=== PATIENT | male | born 1990 | race Caucasian/White ===

== ENCOUNTER 2020-04-22 15:08 | Outpatient (CLI) | payer OTHER, SELFPAY ==
[2020-04-22 15:55] LABS: Add Urine Microscopic? YES; Appearance Urine Clear (Clear); Bilirubin Urine Negative (Negative); Blood Urine Negative (Negative); Color Urine Yellow (Yellow); Glucose Urine UA Negative (Negative); Ketones Urine Trace mg/dL (Negative); Leukocyte Esterase Ur Negative LEU/UL (NEGATIVE); Mucus Urine Rare /lpf; Nitrate Urine Negative (Negative); Protein Urine Negative (Negative); RBC Urine 0-2 /hpf (0-2); Specific Grav Ur 1.018 (1.001-1.035); Urobilinogen Urine Negative mg/dL (<2.0); WBC Urine 0-3 /hpf (0-3)
== END 2020-04-22 15:09 | disposition home or self-care (01) ==
LOC: ANHLAB 15:09
PROVIDERS: PCP Internal Medicine; Visit Provider Physician Assistant
DX: R30.0 Dysuria (principal)
CPT/HCPCS: 81001; 87086

== ENCOUNTER 2021-06-09 05:23 | Observation (INO) | payer OTHER, SELFPAY ==
[2021-06-09] VITALS (30 sets, daily range): BP systolic 102–187; BP diastolic 49–96; PULSE 85–250; RESP 0–33; TEMP 36.5–36.9; O2SAT 98–100; BMI 31.1
--- NOTE | 2021-06-09 | ECHO_ITS ---
Patient Info Name: Julian Nuñez Age: 31 years : 1990 Gender: Male Ht: 72 in Wt: 229 lbs BSA: 2.32 m2 HR: 111 bpm BP: 131 / 70 mmHg Heart Rhythm: Sinus Rhythm Technical Quality: Good Exam Date: 06/09/2021 2:06 PM Exam Location: [facility] Pulmonary Exam Room: [facility] Patient Status: Inpatient Admit Date: 06/09/2021 Staff Ordering Physician: Manny Soto MD [place] Machine Operator: Danette Bates RDCS Attending Provider: Tree Roberts MD Referring Physician: Charles CALDERON; Exam Type: CA echo doppler color flow Study Info Indications - svt Complete two-dimensional, color flow and Doppler transthoracic echocardiogram is performed. Summary 1. Complete two-dimensional, color flow and Doppler transthoracic echocardiogram is performed. 2. Left ventricular chamber dimension is normal. 3. Left ventricular systolic function is normal, estimated at 65-70%. 4. There is no increased left ventricular wall thickness. 5. The left ventricular diastolic function is normal. 6. There is mild tricuspid valve regurgitation. 7. Elevated velocity in the descending aorta of 1.73 m/sec with a gradient of [address] angiogram to rule out coarctation. Left Ventricle Left ventricular chamber dimension is normal. Left ventricular systolic function is normal, estimated at 65-70%. There is no increased left ventricular wall thickness. The left ventricular diastolic function is normal. Right Ventricle Right ventricular chamber dimension is normal. Right ventricular systolic function is normal. Left Atria Left atrial chamber dimension is normal. Right Atria Right atrial chamber dimension is normal. Atrial Septum Intact interatrial septum visualized by color flow imaging. Aortic Valve The aortic valve is trileaflet. There is no aortic valve sclerosis. There is no aortic valve stenosis. There is trace aortic valve regurgitation. Pulmonic Valve The pulmonic valve is normal. There is no pulmonic valve stenosis. There is trace pulmonic regurgitation. Mitral Valve The mitral valve has normal leaflets. There is no mitral valve stenosis. There is trace mitral valve regurgitation. Tricuspid Valve The tricuspid valve leaflets are normal. There is no significant tricuspid valve stenosis. There is mild tricuspid valve regurgitation. No pulmonary hypertension, estimated pulmonary arterial systolic pressure is 30-35mmHg. Other Findings Elevated velocity in the descending aorta of 1.73 m/sec with a gradient of [address] angiogram to rule out coarctation. Pericardium/Pleural The pericardium appears normal. There is no pericardial effusion. Inferior Vena Cava Normal inferior vena cava with >50% collapse upon inspiration consistent with normal right atrial pressure, 5 mmHg. Aorta The aortic root size at the sinus of Valsalva is normal. The prox ascending aorta size is normal. Left Ventricular Outflow Tract Name Value Normal LVOT 2D LVOT Diameter 2.1 cm LVOT Doppler LVOT Peak Gradient 9 mmHg LVOT Mean Gradient
--- NOTE | ~2021-06-09 | XR_ITS ---
EXAMINATION: XR chest 1V portable 06/09/2021 06:47 INDICATION: Chest pain. Elevated heart rate and blood pressure. PROCEDURE: AP portable chest COMPARISON: 06/10/2014 FINDINGS: The lungs are clear. The cardiomediastinal silhouette is within normal limits. There are no pleural effusions. There is no pneumothorax suspected. Shallow inspiration with crowding of the pulmonary vessels. IMPRESSION: 1: NO ACUTE CARDIOPULMONARY DISEASE. Reviewed, dictated and finalized at location A.
[2021-06-09] MEDS: MORPHINE SULFATE (*CRX) 4 MG/ML INJ (05:44)
[2021-06-09] MEDS: dilTIAZem HCl INJ 25 MG/5 ML VIAL 50 MG (05:51)
[2021-06-09] MEDS: dilTIAZem 100 MG/100 ML 100 MG/100 ML BAG (05:51)
--- NOTE | 2021-06-09 05:56 | ECG_ITS ---
Measurements Intervals [place] Rate: 227 P: IA: 0 QRS: 49 QRSD: 115 T: 0 QT: 189 QTc: 367 Interpretive Statements SUPRAVENTRICULAR TACHYCARDIA MODERATE INTRAVENTRICULAR CONDUCTION DELAY [110+ ms QRS DURATION] NONSPECIFIC ST & T-WAVE ABNORMALITY ABNORMAL RHYTHM ECG NO PREVIOUS ECG AVAILABLE FOR COMPARISON Electronically Signed On 06-09-2021 14:03:09 CDT by Manny Soto M.D.
--- NOTE | 2021-06-09 06:01 | ED.ARRPALP ---
HPI - Arrhythmia/Palpitations General Chief Complaint: Chest Pain <Vu Ramirez MD - Last Filed: 06/09/21 06:08> Stated Complaint: chest pain <Vu Ramirez MD - Last Filed: 06/09/21 06:08> Time Seen by Provider: 06/09/21 05:56 <Vu Ramirez MD - Last Filed: 06/09/21 06:08> Source: patient <Vu Ramirez MD - Last Filed: 06/09/21 06:08> Mode of arrival: ambulatory <Vu Ramirez MD - Last Filed: 06/09/21 06:08> Limitations: no limitations <Vu Ramirez MD - Last Filed: 06/09/21 06:08> History of Present Illness HPI narrative: Patient is a 31-year-old male complain of palpitations, sudden onset, started prior to arrival. Patient denies any chest pain, shortness of breath, abdominal pain, nausea, vomiting, diaphoresis, fever or chills. Patient's heart rate upon arrival was in the 220's. Denies any similar episodes in the past. <Vu Ramirez MD - Last Filed: 06/09/21 06:08> Related Data Home Medications: Home Medications Medication Instructions Recorded Confirmed No Home Medications 06/09/21 06/09/21 <Vu Ramirez MD - Last Filed: 06/09/21 06:08> Allergies/Adverse Reactions: Allergies Allergy/AdvReac Type Severity Reaction Status Date / Time No Known Allergies Allergy Verified 06/09/21 07:12 <Vu Ramirez MD - Last Filed: 06/09/21 06:08> Review of Systems Review of Systems: All systems reviewed & are unremarkable except as noted in HPI and below <Vu Ramirez MD - Last Filed: 06/09/21 06:08> Constitutional: Constitutional: Denies body ache(s), Denies chills, Denies excessive sweating, Denies fatigue, Denies fever(s), Denies headache(s), Denies lethargy, Denies malaise, Denies weakness and Denies weight loss <Vu Ramirez MD - Last Filed: 06/09/21 06:08> Eyes: Eyes: Denies blurry vision, Denies change in vision and Denies loss of vision <Vu Ramirez MD - Last Filed: 06/09/21 06:08> ENT: Denies dizziness, Denies ear discharge, Denies headache(s), Denies lip swelling, Denies epistaxis, Denies nasal congestion, Denies neck pain, Denies throat swelling and Denies tongue swelling <Vu Ramirez MD - Last Filed: 06/09/21 06:08> Cardiovascular: Cardiovascular: Denies chest pain, Denies chest pain at rest, Denies chest pain with activity, Denies diaphoresis, Denies edema, Denies irregular heart rhythm, Denies lightheadedness, Denies dyspnea and Denies dyspnea on exertion <Vu Ramirez MD - Last Filed: 06/09/21 06:08> Respiratory: Respiratory: Denies chest congestion, Denies cough, Denies hemoptysis, Denies dyspnea and Denies dyspnea on exertion <Vu Ramirez MD - Last Filed: 06/09/21 06:08> Gastrointestinal: Gastrointestinal: Denies abdominal pain, Denies melena, Denies hematochezia, Denies diarrhea, Denies nausea, Denies vomiting and Denies hematemesis <Vu Ramirez MD - Last Filed: 06/09/21 06:08> Musculoskeletal: Musculoskeletal: Denies abnormal gait, Denies deformity, Denies joint swelling, Denies limited range of motion, Denies neck pain and Denies numbness <Vu Ramirez MD - Last Filed: 06/09/21 06:08> Neurologic: Denies Abnormal speech present, Denies abnormal gait, Denies confusion, Denies dizziness, Denies headache(s), Denies focal weakness, Denies loss of vision, Denies numbness, Denies Other visual disturbances, Denies Sensory deficit (Neuro) and Denies weakness <Vu Ramirez MD - Last Filed: 06/09/21 06:08> Psychiatric: Psychiatric: Denies confusion, Denies depression, Denies auditory hallucinations, Denies homicidal ideation and Denies suicidal ideation <Vu Ramirez MD - Last Filed: 06/09/21 06:08> Endocrine: Endocrine: Denies cold intolerance, Denies excessive sweating, Denies fatigue, Denies heat intolerance and Denies palpitations <Vu Ramirez MD - Last Filed: 06/09/21 06:08> Hematologic/Lymphatic: Hematologic/Lymphatic: [place]
[2021-06-09] MEDS: ADENOSINE IV SOLN 6 MG/2 ML VIAL 18 MG (06:06)
[2021-06-09] MEDS: LORazepam INJ (*CRX) 2 MG/ML VIAL (06:10)
[2021-06-09 06:12] LABS: Basophils Percent Auto 0.5 % (0.2-1.2); Eosinophils Absolute Auto 0.2 K/mm3 (0-0.3); Eosinophils Percent Auto 3.1 % (0-4.4); Hematocrit 48.9 % (42.0-52.0); Hemoglobin 16.5 g/dL (14.0-18.0); Immature Granulocyte Absolute 0.03 K/mm3 (0.00-0.031); Immature Granulocyte Percent A 0.4 % (0-0.5); Lymphocytes Absolute Auto 2.33 K/mm3 (0.9-3.2); Lymphocytes Percent Auto 29.9 % (18.3-44.2); Mean Corpuscular HGB Conc 33.7 g/dl (32-36); Mean Corpuscular Hemoglobin 31.5 pg (26-34); Mean Corpuscular Volume 93.3 fl (80-100); Monocytes Absolute Auto 1.2 K/mm3 (0.1-0.6); Monocytes Percent Auto 15.4 % (2.6-8.5); Neutrophils Absolute Auto 3.9 K/mm3 (1.3-6.7); Neutrophils Percent Auto 50.7 % (45.5-73.1); Platelet Count Result 274 k/mm3 (150-375); Red Blood Count 5.24 M/mm3 (4.6-6.20); Red Cell Distribution Width 12.6 % (11.5-14.5); White Blood Count 7.8 K/mm3 (4.5-10.0)
[2021-06-09] MEDS: SODIUM CHLORIDE 0.9% IV 2,000 ML 999 ML (06:12)
[2021-06-09 06:26] LABS: Alanine Aminotransferase 30 U/L (4-50); Albumin Level 4.7 g/dL (3.5-5.1); Alkaline Phosphatase 65 U/L (38-126); Anion Gap 12 mmol/L (8-16); Aspartate Amino Transferase 27 U/L (17-59); Bilirubin,Total 0.7 mg/dL (0.2-1.3); Blood Urea Nitrogen 14 mg/dL (9-20); Calcium 9.1 mg/dL (8.4-10.2); Carbon Dioxide 25 mmol/L (22-30); Chloride 103 mmol/L (98-107); Estimated CRCL calculation 133 ml/min; Estimated Glomerular Filt Rate > 60; Glucose 113 mg/dL (65-110); Potassium 3.2 mmol/L (3.4-5.0); Sodium 140 mmol/L (137-145)
--- NOTE | 2021-06-09 06:26 | PC.NURSE ---
VORB Ramirez titrate diltiazem to 15 mg/hr.
[2021-06-09 06:27] LABS: INR 0.9; Prothrombin Time 11.9 Seconds (11.1-14.7)
[2021-06-09 06:28] LABS: Partial Thromboplastin Time 30.2 SECONDS (22.3-36.8)
--- NOTE | 2021-06-09 06:35 | PC.NURSE ---
Patient came in at 0530 with c/o heart beating out of chest. Patient taken back to a room immediately and patient HR was 250's and going up. EDKyleigh Cruz and Charge Nurse Mary and RN Shreyas Parada Daniel, Summer and this RN at room at this time. EKG being done at the same time as 2 IV's and blood draw. Patient was given first dose of 6mg of Adenosine at 0534 Heart rate still in the 250's, patient given 12mg of Adenosin at 0536 HR at 250's , given 12mg adenosine at 0539. Patient HR would only go down to 230's for seconds then would immediately go back up to 250's. Patient then given 2mg if Ativan per verbal read back per Kyleigh Cruz then Morphine 2mg at 0544. Patient was then shocked at 0545 with 50 J . Patient BP at this time was 159/78 and HR 188. Patient HR at this time was still 180's. Patient was in A-Fib> [facility] Anthony in room the whole all medications given per verbal Reback order. Patient was then given 20 of Cardizem at 0551 Blood pressure was 160/80 and HR was 190. Patient then given Cardizem 20 at 0553 and patient pulse was 159 and blood pressure was 184/75. Patient was started with 5mcs of Cardizem with HR of 148 and blood pressure of 180/82,. Patient at 0530 had a 18 in the right and left AC. Patient is now on 15 of Cardizem drip with a HR of 145 and a blood pressure of 156/100. Patient was given 1000 bag of Normal Saline while getting all medications and patient is now getting his second 1000 bag of Normal Saline.
[2021-06-09 06:37] LABS: Troponin I < 0.012 ng/mL (0.000-0.034)
[2021-06-09 06:50] LABS: Magnesium 1.9 mg/dL (1.6-2.3)
[2021-06-09 07:02] LABS: D Dimer < 0.22 ug/mL (<0.48)
--- NOTE | 2021-06-09 07:58 | ECG_ITS ---
Measurements Intervals [place] Rate: 136 P: TN: 0 QRS: 37 QRSD: 117 T: 29 QT: 288 QTc: 434 Interpretive Statements ATRIAL FIBRILLATION WITH RAPID VENTRICULAR RESPONSE WITH ABERRANT CONDUCTION OR VENTRICULAR PREMATURE COMPLEXES INCOMPLETE RIGHT BUNDLE BRANCH BLOCK [90+ ms QRS DURATION, TERMINAL R IN V1/V2, 40+ ms S IN I/aVL/V4/V5/V6] ABNORMAL RHYTHM ECG COMPARED TO ECG 06/09/2021 05:30:47 ATRIAL FIBRILLATION NOW PRESENT ABERRANT CONDUCTION OF SUPRAVENTRICULAR BEAT(S) NOW PRESENT INCOMPLETE RIGHT BUNDLE-BRANCH BLOCK NOW PRESENT Electronically Signed On 06-09-2021 14:03:33 CDT by Manny Soto M.D.
[2021-06-09 08:11] LABS: Amphetamine Screen Urine Negative (Negative); Barbiturate Screen Urine Negative (Negative); Benzodiazepines Screen Urine Negative (Negative); Cannabinoid Screen Urine Negative (Negative); Cocaine Screen Urine Negative (Negative); Methadone Screen Urine Negative (Negative); Opiate Screen Urine Negative (Negative); Phencyclidine Screen Urine Negative (Negative)
[2021-06-09] MEDS: POTASSIUM CHLORIDE 20 MEQ TABLET 40 MEQ PO (08:48)
[2021-06-09 09:21] LABS: Troponin I 0.028 ng/mL (0.000-0.034)
--- NOTE | 2021-06-09 09:46 | PC.NURSE ---
This patient, Julian Nuñez, was admitted to IMU Room 200-01. Patient/family oriented to hospital policies and general routines including ID bracelet, bed and alarms, visiting hours, pain management, procedures, bathroom and other care routines, personal items, smoking policy, room service/diet, and visiting hours. Information on how to activate the Rapid Response Team has been discussed. Patient/Family are encouraged to report perceived risks to care and to ask questions if they do not understand what they are told or what they should do.
--- NOTE | 2021-06-09 09:58 | PM.CNCAR ---
Assessment and Plan Assessment and plan (1) SVT (supraventricular tachycardia): Code(s): I47.1 - Supraventricular tachycardia Status: Acute Assessment and Plan: No clear etiology as to his SVT. He does not have any family history of SVT, prior history of SVT, he does not use drugs. No thyroid disease that we are aware of. Does drink too many caffeinated beverages but he has not had any caffeine today. Will complete the workup by ordering a 2D echocardiogram with Doppler. Will DC his diltiazem drip as this is not needed. Will transition to some low-dose oral diltiazem short-acting diltiazem 30 mg p.o. t.i.d.. Will reorder an EKG now he is back in sinus rhythm to ensure there is no delta wave. Will also order free T4 and T3 level. He is advised to avoid caffeine, chocolate, stressful situations. Continue to avoid alcohol and illegal substances. Also avoid Sudafed or like compounds. Plan will be to continue lower dose oral diltiazem as an outpatient until follow-up. He has no further episodes, we will likely discontinue the diltiazem completely. If he has future episodes, consider referral to electrophysiology. His mild hypokalemia may be the inciting factor. Potassium has already been replaced in the emergency department. He should have a repeat basic metabolic panel performed in 1 week. Likely okay for discharge later today (2) Obesity (BMI 30.0-34.9): Code(s): E66.9 - Obesity, unspecified Status: Acute Assessment and Plan: Dietary and lifestyle modifications for weight loss (3) Hypokalemia: Code(s): E87.6 - Hypokalemia Status: Acute Assessment and Plan: Replaced in the ER (4) Elevated blood pressure reading: Code(s): R03.0 - Elevated blood-pressure reading, without diagnosis of hypertension Status: Acute Assessment and Plan: Does have elevated blood pressure but without the diagnosis of hypertension. Will need to monitor this as an outpatient. Diltiazem will also help his BP History of Present Illness History of Present Illness Consult date/time: 06/09/21 09:58 Requesting physician: Mina Robertson MD Consult reason: Other (SVT) Reason For Visit: New onset A fib with RVR/hypokalemia Narrative: Reason consultation: SVT, atrial fibrillation Date of service 06/09/2021 Requesting provider: Dr. Robertson History: Patient is a 31-year-old male who is previously healthy. He has no known cardiac issues. He does not use drugs are having thyroid problems either. He does not drink alcohol. He does drink excessive amounts of caffeine. Drinks about 6 sodas per day. He was getting ready for work this morning. 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 Usual state of health. He lifted his arms above his head to put on a shirt and suddenly became dizzy than could feel his heart racing. It did not stop and therefore he told his fiancee he was going to come to the hospital. He drove himself to the hospital where he was found to be in supraventricular tachycardia with a heart rate of over 220. He did undergo attempts of restoring sinus rhythm with adenosine which were unsuccessful. He was then later cardioverted using only 50 joules which was also unsuccessful. This however did report a slow his heart rate down into the mid 100s around 160-170. Reportedly was atrial fibrillation by this point. EKG was does appear to be in atrial fibrillation he was then started on diltiazem drip which then organized his rhythm slowed his heart rate and he eventually converted to sinus rhythm. He currently feels fine and is without complaint. He has no chest pain, shortness of breath, syncope, presyncope, paroxysmal nocturnal dyspnea, orthopnea, edema or palpitations. He has no family history of dysrhythmia. Review of Systems Review of Systems: All systems reviewed & are unremarkable except as noted in HPI and below Constitutional: Constitutional: Denies weakness Eyes: Eyes: Denies blurry vision
--- NOTE | 2021-06-09 09:59 | ECG_ITS ---
Measurements Intervals [place] Rate: 99 P: 38 SC: 194 QRS: -10 QRSD: 106 T: 19 QT: 318 QTc: 409 Interpretive Statements SINUS RHYTHM INTRAVENTRICULAR CONDUCTION DELAY ABNORMAL ECG COMPARED TO ECG 06/09/2021 05:56:01 SINUS RHYTHM NOW PRESENT Electronically Signed On 06-09-2021 14:03:55 CDT by Manny Soto M.D.
--- NOTE | 2021-06-09 10:22 | PM.IMHP ---
H&P: HPI History of Present Illness Date/Time: PATIENT ADMITTED UNDER OBSERVATION 06/09/21 10:22 Chief Complaint: Tachycardia Narrative: 31-year-old healthy male presents to the emergency room with complaints of tachycardia. Patient awoke this morning and was getting ready for work when, putting on his T shirt, developed acute onset of lightheadedness and tachycardia. He has never had this before. No complaints of chest pain or shortness of breath. No history of drug use. He rarely drinks alcohol. He drinks 8 12oz caffeinated drinks per day. He denies any recent URI or lower respiratory symptoms and has not been taking any [id number] medications such is decongestants. No family history of SVT. No thyroid disease history. Complete review of systems was negative except for complaints of back pain. 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 He has no numbness, tingling or weakness in his extremities. No urinary hesitancy. He denies hearing loss. Because of the tachycardia, patient drove himself to the ED. In the ED patient's heart rate was in the 220 range. EKG showed SVT. He was given adenosine 6 mg without effect. He is given adenosine 12 mg again with no effect. A 3rd dose of adenosine was given also without effect. Patient was premedicated with morphine and Ativan and he had synchronized cardioversion with 50 joules which did decrease his heart rate to 160s. He was given Cardizem 20 mg IV x2 and heart rate so down to 120s. Repeat EKG showed AFib with RVR. He was started on Cardizem drip. Heart rate continue to improve and he ultimately converted to normal sinus rhythm. Review of Systems Review of Systems: All systems reviewed & are unremarkable except as noted in HPI and below [facility] Past Medical History Medical History (Updated 06/09/21 @ 10:16 by Manny Soto MD) Hearing loss Tinnitus Surgical History Surgical History (Updated 06/09/21 @ 10:30 by Tree Roberts MD) Hx of tonsillectomy Family History Family History Mother Patient's mother is in good health Sibling Patient's sister is in good health Father Hypertension Social History Social History (Updated 06/09/21 @ 10:31 by Tree Roberts MD) Social History: Denies all tobacco products. Rarely drinks alcohol. No history of illegal drug use. Full code. Lives with his significant other. Smoking status: Never smoker Second hand tobacco smoke exposure: No Alcohol intake: never Substance use: never Spiritual care concerns: No Meds Home Medications and Allergies Home Medications Medication Instructions Recorded Confirmed Type No Home Medications 06/09/21 06/09/21 History Allergies Allergy/AdvReac Type Severity Reaction Status Date / Time No Known Allergies Allergy Verified 06/09/21 07:12 Vital Signs Vital Signs - 24 hr 06/09/21 05:26 06/09/21 05:27 06/09/21 05:34 Temperature Pulse Rate 219 H 221 H 250 H Respiratory Rate 30 H 33 H Blood Pressure 159/90 H Pulse Oximetry 100 06/09/21 05:37 06/09/21 05:51 06/09/21 05:53 Temperature Pulse Rate 237 H 188 H 160 H Respiratory Rate 21 H 20 Blood Pressure Pulse Oximetry 06/09/21 06:06 06/09/21 06:09 06/09/21 06:11 Temperature Pulse Rate 172 H 150 H 157 H Respiratory Rate 13 10 L Blood Pressure 187/88 H 180/82 H 185/84 H Pulse Oximetry 06/09/21 06:15 06/09/21 06:16 06/09/21 06:32 Temperature Pulse Rate 151 H 139 H 159 H Respiratory Rate 0 L 0 L 15 Blood Pressure 174/81 H Pulse Oximetry 06/09/21 06:45 06/09/21 07:00 06/09/21 07:01 Temperature Pulse Rate 169 H 143 H 143 H Respiratory Rate 28 H 15 Blood Pressure 144/69 H Pulse Oximetry 06/09/21 07:02 06/09/21 07:15 06/09/21 07:16 Temperature Pulse Rate 117 H 112 H 122 H Respiratory Rate 24 H 20 19 Blood
[2021-06-09 13:18] LABS: Troponin I 0.035 ng/mL (0.000-0.034)
[2021-06-09 13:31] LABS: T4 Thyroxine 6.17 ug/dL (5.53-11.0)
[2021-06-09] MEDS: dilTIAZem HCL 30 MG TABLET PO ×2 (14:37→17:55)
--- NOTE | 2021-06-09 16:23 | PM.DS ---
DS: Admitting Diagnosis Discharge Date 06/09/21 Admitting Diagnosis Palpitation DS: Discharge Diagnosis Discharge Diagnosis (1) SVT (supraventricular tachycardia): Code(s): I47.1 - Supraventricular tachycardia Status: Acute (2) Atrial fibrillation with RVR: Code(s): I48.91 - Unspecified atrial fibrillation Status: Acute (3) Hypokalemia: Code(s): E87.6 - Hypokalemia Status: Acute (4) Elevated blood pressure reading: Code(s): R03.0 - Elevated blood-pressure reading, without diagnosis of hypertension Status: Acute DS: Summary Hospital Course Reason for hospitalization: 31-year-old healthy male presents to the emergency room with complaints of tachycardia. Please see H&P for details Hospital Course: Patient developed acute onset of lightheadedness and tachycardia and presented to the emergency room for this reason. In the ED patient's heart rate was in the 220 range. EKG showed SVT. He was given adenosine 6 mg without effect. He is given adenosine 12 mg again with no effect. A 3rd dose of adenosine was given also without effect. Patient was premedicated with morphine and Ativan and he had synchronized cardioversion with 50 joules which did decrease his heart rate to 160s. He was given Cardizem 20 mg IV x2 and heart rate so down to 120s. Repeat EKG showed AFib with RVR. He was started on Cardizem drip. Heart rate continue to improve and he ultimately converted to normal sinus rhythm. Patient was seen by Cardiology. He was converted to oral Cardizem. EKG confirms normal sinus rhythm and no delta waves. Echocardiogram completed but results are pending. D-dimer was negative. Third troponin was slightly elevated 0.035 felt to be related to the SVT. TSH was normal. Total T4 also normal. Urine drug screen was negative. Patient was monitored on telemetry. No recurrence. He overall did well was able to be discharged home. He was instructed on how to perform Valsalva if he has recurrent symptoms. He was educated about abstaining from any alcohol, drug use or [id number] decongestants. Also advised to decrease his caffeine intake. Patient overall did well was a to be discharged home on 06/09/2021. Status at Discharge Cognitive/behavioral status at discharge: Stable Time Spent with Patient Time attestation: Total time spent providing and/or coordinating discharge services:45 minutes Time spent: Greater than 30 minutes Exam Narrative: AF 97.8 102/49 93 18 100% RA Gen - well-nourished, well-developed male in no acute respiratory distress who is nontoxic-appearing lying semi recumbent in bed HEENT - normocephalic. Atraumatic. Pupils equal round and reactive. Extraocular motions intact. Sclera clear and anicteric. Nares patent. Moist mucous membranes. Tongue was midline. Palate wisam symmetrically. No facial asymmetry. Neck - neck was supple. No dominant adenopathy, thyromegaly or masses. 2+ carotid upstrokes without bruits. Chest - lungs are clear to auscultation bilaterally. No wheezes or crackles. CV - heart was regular rate and rhythm. S1-S2. No murmurs gallops or rubs. Abd - abdomen was soft. Nontender. Nondistended. Positive bowel sounds. No organomegaly or masses. Ext - no clubbing, cyanosis or edema. 2+ DP pulses bilaterally. Neuro - patient is alert and oriented x4. Strength is 5/5 in both upper and lower extremities. Cranial nerves 2-12 are intact. Speech is clear. Psych - normal mood and affect. Patient is pleasant and cooperative. Skin - warm and dry. No rashes noted. DS: Data Data Completed and Pending Labs on day of discharge: Labs from last 24 hours 06/09/21 06/09/21 06/09/21 11:48 11:48 08:50 WBC RBC Hgb Hct MCV MCH MCHC RDW Plt Count MPV Immature Gran % (Auto) Neut % (Auto) Lymph % (Auto) Roberts % (Auto) Eos % (Auto) Baso % (Auto) Lymph # (Auto) Roberts # (Auto) Eo
[2021-06-09] MEDS: POTASSIUM CHLORIDE 20 MEQ TABLET.ER 40 MEQ PO (17:56)
== END 2021-06-09 18:18 | disposition home or self-care (01) ==
LOC: ANHED 07:48 → ANHIMU 08:34
PROVIDERS: Emergency Medicine; Internal Medicine Cardiovascular Disease; Admitting Provider Internal Medicine; Emergency Provider Emergency Medicine; PCP Internal Medicine; Visit Provider Internal Medicine
DX: I47.1 Supraventricular tachycardia (principal); I48.91 Unspecified atrial fibrillation; E87.6 Hypokalemia; R03.0 Elevated blood-pressure reading, without diagnosis of hypertension; E66.9 Obesity, unspecified; Z68.31 Body mass index [BMI] 31.0-31.9, adult
CPT/HCPCS: 36415; 71045; 80053; 80307; 83735; 84436; 84443; 84484; 85025; 85380; 85610; 85730; 92960; 93005; 93306; 96365; 96366; 96375; 99285; A9270; G0378; J0153; J2060; J2250; J2270; J3475; J7030

== ENCOUNTER 2021-07-02 15:03 | Outpatient (CLI) | payer OTHER, SELFPAY ==
--- NOTE | ~2021-07-02 | CT_ITS ---
EXAMINATION: CTA chest DATE: 07/02/2021 15:30 INDICATION: Coarctation of the aorta. TECHNIQUE: Computed tomographic angiography (CTA) of the chest was performed with 100 mL Omnipaque-35 0 intravenous contrast. Automated exposure control and iterative reconstruction technique were employ ed. The dose-length product was 696.59 mGy-cm. Maximum intensity projection 3D-reconstructions of the aorta and other arteries were constructed by the technologist on a separate workstation. COMPARISON: None. FINDINGS: A calcified right lung nodule is consistent with old granulomatous disease. There is no pne umonia or pleural effusion. The heart size is normal. No pericardial effusion. Thoracic aorta is norm al in caliber. There is mild thoracic spondylosis. IMPRESSION: 1. Normal thoracic aorta. No coarctation. Reviewed, dictated and finalized at location A.
== END 2021-07-02 15:04 | disposition home or self-care (01) ==
PROVIDERS: PCP Internal Medicine; Visit Provider Nurse Practitioner Adult Health
DX: R93.1 Abnormal findings on diagnostic imaging of heart and coronary circulation (principal)
CPT/HCPCS: 71275; Q9967

== ENCOUNTER 2021-12-15 14:22 | Outpatient (CLI) | payer OTHER, SELFPAY | END 2021-12-15 14:23 | disposition home or self-care (01) | LOC: ANHAUDIO 14:23 | PROVIDERS: PCP Internal Medicine; Visit Provider Otolaryngology | DX: H93.13 Tinnitus, bilateral (principal); H90.3 Sensorineural hearing loss, bilateral | CPT/HCPCS: 92557; 92567 ==

== ENCOUNTER 2021-12-18 14:32 | Emergency (ER) | payer OTHER, SELFPAY ==
[2021-12-18] VITALS (43 sets, daily range): BP systolic 131–179; BP diastolic 68–102; PULSE 88–135; RESP 16–24; TEMP 36.6; O2SAT 97–100
--- NOTE | ~2021-12-18 | XR_ITS ---
EXAMINATION: XR chest 1V portable Exam Date/Time: 12/18/2021 15:15 CDT HISTORY: chest pain Comparison: 06/09/2021. RESULT: Lines, tubes, and devices: None. Lungs and pleura: Slightly low lung volumes with crowding.. Cardiomediastinal silhouette: Stable. Other: No acute osseous or upper abdominal finding. IMPRESSION: No acute cardiopulmonary process. Reviewed, dictated and finalized at location K.
--- NOTE | 2021-12-18 14:46 | ECG_ITS ---
Measurements Intervals [place] Rate: 113 P: 47 AR: 187 QRS: 11 QRSD: 106 T: 34 QT: 316 QTc: 434 Interpretive Statements SINUS TACHYCARDIA POSSIBLE LEFT ATRIAL ENLARGEMENT [-0.1mV P WAVE IN V1/V2] ABNORMAL RHYTHM ECG COMPARED TO ECG 06/09/2021 08:10:10 SINUS TACHYCARDIA NOW PRESENT Electronically Signed On 12-19-2021 17:26:12 CDT by Jo Marquez M.D.
[2021-12-18 15:04] LABS: Basophils Percent Auto 0.5 % (0.2-1.2); Eosinophils Absolute Auto 0.1 K/mm3 (0-0.3); Hematocrit 46.8 % (42.0-52.0); Hemoglobin 16.3 g/dL (14.0-18.0); Immature Granulocyte Absolute 0.03 K/mm3 (0.00-0.031); Immature Granulocyte Percent A 0.5 % (0-0.5); Lymphocytes Absolute Auto 1.27 K/mm3 (0.9-3.2); Lymphocytes Percent Auto 19.8 % (18.3-44.2); Mean Corpuscular HGB Conc 34.8 g/dl (32-36); Mean Corpuscular Hemoglobin 32.1 pg (26-34); Mean Corpuscular Volume 92.1 fl (80-100); Mean Platelet Volume 9.5 fl (7.4-10.4); Monocytes Absolute Auto 0.5 K/mm3 (0.1-0.6); Monocytes Percent Auto 7.2 % (2.6-8.5); Neutrophils Absolute Auto 4.5 K/mm3 (1.3-6.7); Platelet Count Result 275 k/mm3 (150-375); Red Blood Count 5.08 M/mm3 (4.6-6.20); Red Cell Distribution Width 12.4 % (11.5-14.5); White Blood Count 6.4 K/mm3 (4.5-10.0)
[2021-12-18] MEDS: ASPIRIN 81 MG CHEWABLE TABLET 324 MG PO (15:09)
[2021-12-18] MEDS: SODIUM CHLORIDE 0.9% IV 1,000 ML 999 ML IV CONT (15:10)
[2021-12-18] MEDS: LORazepam (*CRX) 1 MG TABLET PO (15:10)
[2021-12-18 15:16] LABS: Lipase 397 U/L (23-300)
[2021-12-18 15:18] LABS: Alanine Aminotransferase 56 U/L (6-50); Albumin Level 4.9 g/dL (3.5-5.1); Alkaline Phosphatase 69 U/L (38-126); Anion Gap 12 mmol/L (8-16); Aspartate Amino Transferase 42 U/L (17-59); Bilirubin,Total 0.5 mg/dL (0.2-1.3); Blood Urea Nitrogen 13 mg/dL (9-20); Calcium 9.7 mg/dL (8.4-10.2); Carbon Dioxide 26 mmol/L (22-30); Chloride 102 mmol/L (98-107); Estimated CRCL calculation 126 ml/min; Estimated Glomerular Filt Rate > 60; Glucose 135 mg/dL (65-110); Magnesium 1.9 mg/dL (1.6-2.3); Potassium 3.6 mmol/L (3.4-5.0); Sodium 140 mmol/L (137-145)
[2021-12-18 15:25] LABS: Partial Thromboplastin Time 29.7 SECONDS (22.3-36.8); Prothrombin Time 12.5 Seconds (11.1-14.7)
[2021-12-18 15:27] LABS: NT Pro B Type Natriuretic Pept 74 pg/mL (5-100)
[2021-12-18 15:29] LABS: Troponin I < 0.012 ng/mL (0.000-0.034)
[2021-12-18] MEDS: SODIUM CHLORIDE 0.9% IV 2,000 ML 999 ML IV CONT (18:11)
[2021-12-18 18:19] LABS: Troponin I < 0.012 ng/mL (0.000-0.034)
--- NOTE | 2021-12-18 19:56 | ED.GENADULT ---
HPI - General Adult General Chief complaint: Chest Pain Stated complaint: chest pain, dizziness, lightheaded Time Seen by Provider: 12/18/21 14:47 History of Present Illness HPI narrative: This is a 31-year-old male with history of AFib with RVR presenting to ED with a chief complaint of palpitations. Patient says that began last night at 10:30 a.m. while he was trying to sleep. was complaining of some left arm pain at that time. It has since resolved. Patient says he has experience palpitations like these in the past when he had AFib with RVR. Patient also notes he has had headache and some fatigue lately. Patient also notes her significant anxiety related to his high BP. He denies fever, chills, nausea vomiting or diarrhea. Denies any association with diaphoresis or exertion. Related Data Allergies Allergy/AdvReac Type Severity Reaction Status Date / Time No Known Allergies Allergy Verified 12/02/21 16:02 Review of Systems Review of Systems: CONSTITUTIONAL: Denies night sweats. EYES: No eye pain ENT: Denies rhinorrhea CARDIOVASCULAR: Denies palpitations RESPIRATORY: Denies hemoptysis GASTROINTESTINAL: Denies hematemesis GENITOURINARY: Denies hematuria. SKIN: Denies rash MUSCULOSKELETAL: Denies myalgia. NEUROLOGIC: Denies weakness. PSYCHIATRIC: Denies delusions PMFSH Past Medical History Medical History Hearing loss Tinnitus Surgical History Surgical History Hx of tonsillectomy Family History Family History Mother Patient's mother is in good health Sibling Patient's sister is in good health Father Hypertension Social History Social History Social History: Denies all tobacco products. Rarely drinks alcohol. No history of illegal drug use. Full code. Lives with his significant other. Smoking status: Never smoker Second hand tobacco smoke exposure: No Alcohol intake: never Substance use: never Spiritual care concerns: No Exam Narrative: APPEARANCE: No apparent distress. Head atraumatic. EYES: PERRLA/EOMI, NOSE: Normal no drainage NECK: Supple, Trachea midline RESPIRATORY: CTAB, No increased work of breathing. CARDIOVASCULAR: S1S2 appreciated , no peripheral edema ABDOMINAL: Soft, nontender, nondistended, MUSCULOSKELETAl: No obvious deformities NEURO: Alert. Moving 4/4 extremities SKIN:: Warm, dry. Normal color PSYCHIATRIC: Normal affect Course Vital Signs Vital signs: Vital Signs Temperature 97.9 F 12/18/21 14:43 Pulse Rate 122 H 12/18/21 14:43 Respiratory Rate 20 12/18/21 14:43 Blood Pressure 169/88 H 12/18/21 14:43 Pulse Oximetry 98 12/18/21 14:43 Oxygen Delivery Room Air 12/18/21 14:43 Temperature 97.9 F 12/18/21 14:43 Pulse Rate 114 H 12/18/21 19:16 Respiratory Rate 18 12/18/21 19:16 Blood Pressure 144/102 H 12/18/21 19:16 Pulse Oximetry 100 12/18/21 19:16 Oxygen Delivery Room Air 12/18/21 14:43 Medical Decision Making MDM Narrative Medical decision making narrative: This is a 31-year-old male with a history of AVR presenting to the ED with palpitations. patient has a history of AFib with RVR and has undergone a extensive cardiology workup in the past. Due to his previous cardiac history will obtain basic lab work, troponin BNP, EKG and chest x-ray. Review of previous records shows an essentially normal echocardiogram. EKG interpretation: Rhythm [sinus], Rate 113 [place] -[normal], DE -[normal], QRS [narrow], QTC [normal], T waves -[negative for concerning inversions], ST Segments - [Negative for concerning elevations] Final interpretations: Sinus tachycardia Patient will be given several L of fluid. He has requested something to calm his nerves and again 1 mg p.o. Ativan. A lipase was
[2021-12-18] MEDS: ACETAMINOPHEN 500 MG TABLET 1000 MG PO (20:16)
== END 2021-12-18 20:26 | disposition home or self-care (01) ==
PROVIDERS: Emergency Medicine; Emergency Provider Emergency Medicine; PCP Internal Medicine
DX: I47.1 Supraventricular tachycardia (principal); K85.90 Acute pancreatitis without necrosis or infection, unspecified; I48.91 Unspecified atrial fibrillation; R94.31 Abnormal electrocardiogram [ECG] [EKG]
CPT/HCPCS: 36415; 71045; 80053; 83690; 83735; 83880; 84484; 85025; 85610; 85730; 93005; 96360; 96361; 99284; A9270; J7030

== ENCOUNTER 2022-01-05 15:32 | Outpatient (CLI) | payer OTHER, SELFPAY ==
--- NOTE | ~2022-01-05 | MR_ITS ---
EXAMINATION: MR IAC wo/w con DATE: 01/05/2022 16:36 INDICATION: Left-sided asymmetric hearing loss. Left-sided tinnitus. TECHNIQUE: Magnetic resonance imaging (MRI) of the brain, brainstem, and internal auditory canals was performed without and with 20 mL MultiHance intravenous contrast. COMPARISON: None. FINDINGS: There is no intracranial hemorrhage, acute infarction, or abnormal intracranial mass lesion . The ventricles are normal in size. The paranasal sinuses are clear. The orbits are normal. The inte rnal auditory canals and inner and middle ears are normal. The mastoid air cells are normal. IMPRESSION: 1. Normal brain. Reviewed, dictated and finalized at location B. IMPRESSION: 1. Normal brain.
== END 2022-01-05 15:33 | disposition home or self-care (01) ==
PROVIDERS: PCP Internal Medicine; Visit Provider Otolaryngology
DX: H91.8X9 Other specified hearing loss, unspecified ear (principal)
CPT/HCPCS: 70553; A9577

== ENCOUNTER 2022-01-10 14:30 | Outpatient (CLI) | payer OTHER, SELFPAY ==
--- NOTE | 2022-01-14 16:19 | P.PCNHOL_ITS ---
Holter/Event Monitor Holter/Event Monitor Date of procedure: 01/14/22 Holter/Event Procedure: 48 Hr Holter Monitor Diagnosis: Palpitations Indications: Palpitations Image/Tracing Quality: Acceptable Finding: Underlying rhythm is sinus with an average heart rate of 77 beats per minute minimum of 41 beats per minute occurring at 1:49 a.m. and maximum 138 beats minute occurring at 11:45 a.m.. No ventricular ectopy is noted throughout the study. Rare supraventricular ectopy with 3 atrial pairs identified. No prolo nged pauses or high-grade AV blocks. No atrial fibrillation or atrial flutter. At 7:10 a.m. patient complained of palpitations associated with sinus rhythm 93 beats per minute without ectopy. WI interval was with normal limits with a nonspecific intraventricular conduction delay. Conclusion: Unremarkable Holter monitor with underlying sinus rhythm without ventricular ectopy and very rare supraventricular ectopy as noted above. No atrial fibrillation, atrial flutter, prolonged pauses or high-grade AV blocks.
== END 2022-01-10 14:31 | disposition home or self-care (01) ==
PROVIDERS: PCP Internal Medicine; Visit Provider Internal Medicine
DX: R00.2 Palpitations (principal); I47.1 Supraventricular tachycardia; I48.91 Unspecified atrial fibrillation
CPT/HCPCS: 93225; 93226

== ENCOUNTER 2022-04-30 18:14 | Observation (INO) | payer OTHER, SELFPAY ==
[2022-04-30] VITALS (26 sets, daily range): BP systolic 131–149; BP diastolic 76–86; PULSE 81–219; RESP 8–25; O2SAT 93–100
--- NOTE | ~2022-04-30 | XR_ITS ---
EXAMINATION: XR chest 1V portable Exam Date/Time: 04/30/2022 18:40 INDEPENDENT DISTRIBUTOR HISTORY: chest pain, HEART PALPATATIONS Comparison: 12/18/2021. RESULT: Lines, tubes, and devices: None. Lungs and pleura: Low lung volume with crowding, otherwise clear. Cardiomediastinal silhouette: Stable. Other: No acute osseous or upper abdominal finding. IMPRESSION: No acute cardiopulmonary process. Reviewed, dictated and finalized at location K. PENDENT DISTRIBUTOR
--- NOTE | 2022-04-30 18:16 | ECG_ITS ---
Measurements Intervals Elbert Rate: 239 P: AL: 0 QRS: 28 QRSD: 198 T: 0 QT: 269 QTc: 536 Interpretive Statements SUPRAVENTRICULAR TACHYCARDIA INTRAVENTRICULAR CONDUCTION DELAY [130+ ms QRS DURATION] MARKED ST DEPRESSION, CONSIDER SUBENDOCARDIAL INJURY [0.2+ mV ST DEPRESSION] COMPARED TO ECG 12/18/2021 14:59:44 THE PATIENT IS NOW IN AN SVT Electronically Signed On 04-30-2022 19:53:33 CIRCULATION WORKER by Delphine Palomo M.D.
--- NOTE | 2022-04-30 18:20 | PC.NURSE ---
Pt arrived to room. 18 right AC started. Crash cart at bedside pad applied. MD ordered 6 of adenosine. pt remains in SVT. 1825 Md ordered 12mg of Adenosine. Pt remains in SVT. Etomide 30 ordered for sedation for synchorized shock.
--- NOTE | 2022-04-30 18:25 | PC.NURSE ---
1824: Adenosine 6 mg IV push administered per verbal order from Dr. Tucker 1825: Adenosine 12 mg IV push administered per verbal order from Dr. Tucker
[2022-04-30 18:43] LABS: Basophils Absolute Auto 0.1 K/mm3 (0.0-0.1); Basophils Percent Auto 0.6 % (0.2-1.2); Eosinophils Absolute Auto 0.4 K/mm3 (0-0.3); Eosinophils Percent Auto 3.7 % (0-4.4); Hematocrit 49.1 % (42.0-52.0); Immature Granulocyte Absolute 0.03 K/mm3 (0.00-0.031); Immature Granulocyte Percent A 0.3 % (0-0.5); Lymphocytes Absolute Auto 3.13 K/mm3 (0.9-3.2); Lymphocytes Percent Auto 33.5 % (18.3-44.2); Mean Corpuscular HGB Conc 34.6 g/dl (32-36); Mean Corpuscular Hemoglobin 31.7 pg (26-34); Mean Corpuscular Volume 91.6 fl (80-100); Mean Platelet Volume 9.7 fl (7.4-10.4); Monocytes Percent Auto 10.4 % (2.6-8.5); Neutrophils Absolute Auto 4.8 K/mm3 (1.3-6.7); Neutrophils Percent Auto 51.5 % (45.5-73.1); Platelet Count Result 373 k/mm3 (150-375); Red Blood Count 5.36 M/mm3 (4.6-6.20); Red Cell Distribution Width 12.6 % (11.5-14.5); White Blood Count 9.4 K/mm3 (4.5-10.0)
--- NOTE | 2022-04-30 18:48 | PC.NURSE ---
1832 30mg of etomide verbal order DR Tucker. Sync cardioversion delivered pt converted back to SR pulse resting at 108.
[2022-04-30 18:53] LABS: Alanine Aminotransferase 52 U/L (6-50); Albumin Level 5.3 g/dL (3.5-5.1); Alkaline Phosphatase 71 U/L (38-126); Anion Gap 11 mmol/L (8-16); Aspartate Amino Transferase 36 U/L (17-59); Bilirubin,Total 0.6 mg/dL (0.2-1.3); Blood Urea Nitrogen 18 mg/dL (9-20); Calcium 9.1 mg/dL (8.4-10.2); Carbon Dioxide 26 mmol/L (22-30); Chloride 105 mmol/L (98-107); Estimated CRCL calculation 131 ml/min; Estimated Glomerular Filt Rate > 60; Glucose 87 mg/dL (65-110); Lipase 145 U/L (23-300); Potassium 3.2 mmol/L (3.4-5.0); Sodium 142 mmol/L (137-145)
[2022-04-30] MEDS: SODIUM CHLORIDE 0.9% IV 1,000 ML 999 ML (18:53)
[2022-04-30 18:54] LABS: INR 0.9; Prothrombin Time 11.9 Seconds (11.1-14.7)
[2022-04-30 18:55] LABS: Partial Thromboplastin Time 29.8 SECONDS (22.3-36.8)
--- NOTE | 2022-04-30 18:59 | PC.NURSE ---
1845 pt A&Ox4. VS stable. pt denies chest pain and sob. will continue to monitor. Mother of pt at bedside.
[2022-04-30 19:05] LABS: Troponin I < 0.012 ng/mL (0.000-0.034)
[2022-04-30] MEDS: ASPIRIN 81 MG CHEWABLE TABLET 324 MG PO (19:20)
[2022-04-30] MEDS: ADENOSINE IV SOLN 6 MG/2 ML VIAL IV PUSH (19:21)
[2022-04-30] MEDS: ADENOSINE IV SOLN 6 MG/2 ML VIAL 12 MG IV PUSH (19:21)
[2022-04-30] MEDS: ETOMIDATE 20 MG/10 ML AMPUL 30 MG IV PUSH (19:22)
--- NOTE | 2022-04-30 19:26 | ECG_ITS ---
Measurements Intervals [place] Rate: 115 P: 41 WI: 185 QRS: 4 QRSD: 109 T: 18 QT: 308 QTc: 427 Interpretive Statements SINUS TACHYCARDIA ABNORMAL RHYTHM ECG COMPARED TO ECG 04/30/2022 18:20:23 THE SVT HAS RESOLVED Electronically Signed On 05-01-2022 8:27:11 STABLE HELPER by Delphine Palomo M.D.
[2022-04-30] MEDS: POTASSIUM CHLORIDE 20 MEQ PACKET (FOR LIQUID) 40 MEQ PO (20:22)
--- NOTE | 2022-04-30 21:45 | ED.CHESTPAIN ---
HPI - Chest Pain General Chief Complaint: Chest Pain Stated Complaint: chest pain Time Seen by Provider: 04/30/22 18:38 History of Present Illness HPI narrative: 32yoM p/w palpitations, feels like the last time he had SVT. States that started about 10 minutes ago, With some shortness of breath. He had been seen by cardiology for this a year ago, not started on any medications . Related Data Allergies Allergy/AdvReac Type Severity Reaction Status Date / Time No Known Allergies Allergy Verified 02/07/22 15:35 Review of Systems Review of Systems: CONST: No fever. HEENT: No sore throat C/V: chest pain RESP: Trouble breathing GI: No abdominal pain : No dysuria. M/S: No joint pain. SKIN: No rash. NEURO: [No headache or focal numbness or weakness] PSYCH: [No depression] [facility] Past Medical History Medical History (Updated 04/30/22 @ 21:56 by Diandra Tucker MD) Hearing loss SVT (supraventricular tachycardia) Tinnitus Surgical History Surgical History Hx of tonsillectomy Family History Family History Mother Patient's mother is in good health Sibling Patient's sister is in good health Father Hypertension Social History Social History Social History: Denies all tobacco products. Rarely drinks alcohol. No history of illegal drug use. Full code. Lives with his significant other. Smoking status: Never smoker Second hand tobacco smoke exposure: No Alcohol intake: never Substance use: never Lack of Transportation: No Lack of Food: Never True Current Housing: I Have Housing Concerned About Future Housing: No Difficulty Paying Gas/Electric Bills: No Difficulty Paying for Meds: No Currently Unemployed: No Education: Trade/Vocational Certificate Difficulty w/ Childcare or Family Care: No Spiritual care concerns: No Exam Narrative: EXAMINATION OF ORGAN SYSTEMS/BODY AREAS: Constitutional: Vital signs per nursing GENERAL: Appears quite uncomfortable in bed and anxious HEAD: Normal with no signs of head trauma. EYES: EOMI, conjunctiva normal ENT: Hearing grossly intact LUNGS: Labored respirations. HEART: Tachycardic ABD: [Soft], [nontender to palpation] EXT: Normal range of motion SKIN: [No rashes or lesions.] NEURO: [Alert and oriented x 3. No gross focal sensory or strength deficits.] PSYCH: Anxious affect Course Vital Signs Vital signs: Vital Signs Pulse Rate 219 H 04/30/22 18:20 Respiratory Rate 25 H 04/30/22 18:20 Blood Pressure 138/81 04/30/22 18:20 Pulse Oximetry 100 04/30/22 18:20 Oxygen Delivery Room Air 04/30/22 18:20 Pulse Rate 110 H 04/30/22 19:31 Respiratory Rate 18 04/30/22 19:19 Blood Pressure 137/81 04/30/22 19:30 Pulse Oximetry 100 04/30/22 19:31 Oxygen Delivery Room Air 04/30/22 18:20 MDM - Chest Pain MDM Narrative Medical decision making narrative: 32-year-old male presenting with palpitations, tried vagal maneuvers at home which didn't help, vital signs notable for tachycardia, he is placed on cardiac monitors, IV placed, IV fluids started, EKG obtained showing SVT, rate 239, narrow QRS. We did attempt medical conversion with 6 mg then 12 mg fast push of adenosine, however patient still continued to be in SVT, I did offer Cardizem but he asked multiple times to please just be shocked. Risks and benefits discussed with patient, 30mg IV etomidate ordered for sedation, and synchronized cardioversion performed at 200 J with immediate resolution of his SVT and HR now sinus; patient also states that he is feeling better, although he still feeling some chest pressure. Given his anxiety about this happening again, and discussing this with his family who states that this is happened now at least 2 or 3 times, he would like to be admitted and I feel this is reasonable, case disc
[2022-04-30 22:13] LABS: Influenza A QL RT-PCR Negative (Negative); Influenza B QL RT-PCR Negative (Negative); RSV RNA, RT-PCR Negative (Negative); SARS-CoV-2 RNA PCR Negative
[2022-04-30 22:25] LABS: Troponin I 0.051 ng/mL (0.000-0.034)
[2022-05-01] VITALS (12 sets, daily range): BP systolic 122–138; BP diastolic 60–93; PULSE 62–94; RESP 14–22; TEMP 36.1–36.6; O2SAT 96–100; BMI 33.5
--- NOTE | 2022-05-01 00:57 | ADMGEN ---
This patient, Julian Nuñez, was admitted to IMU Room 205-02 on 05/01/22 at 0042. Patient/family oriented to hospital policies and general routines including ID bracelet, bed and alarms, visiting hours, pain management, procedures, bathroom and other care routines, personal items, smoking policy, room service/diet, and visiting hours. Information on how to activate the Rapid Response Team has been discussed. Patient/Family are encouraged to report perceived risks to care and to ask questions if they do not understand what they are told or what they should do.
[2022-05-01 01:29] LABS: Troponin I 0.039 ng/mL (0.000-0.034)
--- NOTE | 2022-05-01 12:11 | PM.SD2 ---
Same Day Admit/Disch: HPI History of Present Illness Chief complaint: SVT Narrative: Julian Nuñez is a 32 year old male Who was admitted with a 2nd episode of PSVT. The patient has 1st episode of PSVT in May 2021 with his heart rate over 220 beats per minute. Adenosine was unsuccessful and he was Electrically cardioverted to atrial fibrillation. He has then admitted on a diltiazem drip and converted to sinus rhythm. He was seen by Dr. Soto. Echo showed normal LV function EF 65-70%, normal diastolic function, mild TR and mildly elevated velocity of the descending aorta 1.7 m/sec. Follow-up CT angiogram did not show any coarctation. He was discharged on Cardizem t.i.d. and seen in the office on 06/18/2021. Cardizem was discontinued and he was asked to follow-up in 3-4 months. since then the patient has had infrequent skin fungus heartbeat. Yesterday while walking around his house he is suddenly went back into his SVT. He could feels heart race and lb. He did not had a any shortness of breath, dizziness, chest pain or syncope. Valsalva maneuver was unsuccessful. He came to the emergency room and adenosine 6 mg and 12 mg was unsuccessful so again electrically cardioverted admitted overnight for observation. The patient quit caffeine completely after his 1st episode. Does not drink any alcohol nor any you use any drugs. No history of syncope, chest pain, shortness of breath, hypertension, diabetes, or family history of a arrhythmias. 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 Denies all tobacco products. Rarely drinks alcohol. No history of illegal drug use. Full code. Lives with his significant other. Has children Smoking status: Never smoker Second hand tobacco smoke exposure: No Alcohol intake: never Substance use: never Substance use type: does not use Lack of Transportation: No Lack of Food: Never True Current Housing: I Have Housing Concerned About Future Housing: No Difficulty Paying Gas/Electric Bills: No Difficulty Paying for Meds: No Currently Unemployed: No Education: Trade/Vocational Certificate Difficulty w/ Childcare or Family Care: No Spiritual care concerns: No Same Day Admit/Disch: Med Pre-admit Medications Home Medications Medication Instructions Recorded Confirmed Type sertraline 50 mg tablet 75 mg PO DAILY 90 days #135 tabs 02/20/22 05/01/22 Rx acetaminophen 325 mg tablet 650 mg PO Q4-6H PRN Pain (Scale 05/01/22 05/01/22 History (Tylenol) Score 1-3) Exam Const: General: cooperative, healthy appearing and comfortable; No confusion Orientation/consciousness: oriented to person, patient oriented x3 and No confusion Other: healthy robust appearing young man, girlfriend/ at the bedside, no distress but anxious. HENMT: Face/Nose/Sinus: Normal external nose present Mouth: Yes Normal oral and palatal mucosa present Eyes: General: appearance normal, both eyes and all related structures Neck: Neck: normal visual inspection Thyroid: thyroid normal Carotids: no bruits Resp: Effort & Inspection: normal respiratory effort Auscultation: clear to auscultation bilaterally Cardio: Rate: regular rate Rhythm: regular rhythm Heart sounds: no murmurs GI: Inspection: normal to inspection GI Palp: No abdominal tenderness Skin: General skin exam: normal color and no rashes or lesions noted Neuro: Gene
== END 2022-05-01 13:22 | disposition home or self-care (01) ==
LOC: ANHED 21:56 → ANH2MED 22:33 → ANHIMU 23:49
PROVIDERS: Emergency Medicine; Admitting Provider Internal Medicine Cardiovascular Disease; Emergency Provider Emergency Medicine; PCP Internal Medicine; Visit Provider Internal Medicine Cardiovascular Disease
DX: I47.1 Supraventricular tachycardia (principal); H93.19 Tinnitus, unspecified ear; H91.90 Unspecified hearing loss, unspecified ear; Z20.822 Contact with and (suspected) exposure to COVID-19; R94.31 Abnormal electrocardiogram [ECG] [EKG]; R00.1 Bradycardia, unspecified
CPT/HCPCS: 36415; 71045; 80053; 83690; 84484; 85025; 85610; 85730; 87637; 93005; 96361; 96374; 96375; 99285; A9270; G0378; J0153; J2250; J7030

== ENCOUNTER 2024-01-30 15:55 | Outpatient (CLI) | payer OTHER, SELFPAY ==
--- NOTE | ~2024-01-30 | XR_ITS ---
CHEST RADIOGRAPH, PA AND LATERAL CLINICAL HISTORY: R50.9 - Fever, unspecified . COMPARISON: 12/18/2021 TECHNIQUE: PA and lateral views of the chest. FINDINGS The cardiomediastinal silhouette is unremarkable. The lungs are clear. Visualized osseous structures and soft tissues are unremarkable. IMPRESSION: No focal infiltrate or effusion. Reviewed, dictated and finalized at location A. TY COUNSELOR
== END 2024-01-30 15:56 | disposition home or self-care (01) ==
PROVIDERS: PCP Internal Medicine; Visit Provider Clinical Nurse Specialist
DX: R50.9 Fever, unspecified (principal)
CPT/HCPCS: 71046

== ENCOUNTER 2024-05-24 16:04 | Emergency (ER) | payer OTHER, SELFPAY ==
--- OUTSIDE RECORDS SUMMARY | 2024-05-24 16:06 | XMS_ITS | Referral Summary ---
Author Organization [facility] Address [address] [place] [id number] Care Team Providers Care Brake Operator Helper Name Role Phone Klever Chaudhry DO Primary Care Provider [phone] Allergies No known active allergies Medications sertraline (ZOLOFT) 100 mg tabletIndicatio ns:Anxiety with Depression Take 1 tablet (100 mg total) by mouth every morning 05/09/2022 Active acetaminophen (TYLENOL) 500 mg tabletIndicatio ns:Pain Take 2 tablets (1,000 mg total) by mouth every 6 (six) hours as needed for pain Active Active Problems Problem Noted Date Diagnosed Date SVT (supraventricular tachycardia) 05/23/2022 Overview (05/23/2022): Added automatically from request for surgery [id number] Assessment & Plan (06/06/2022 6:43 PM CDT): -S/P successful atrial tachycardia ablation -Telemetry overnight -Bedrest 3 hours (up at 2000) as long as no bleeding issues from groin sites -Remove Lowe catheter once bedrest complete -No heparin products; SCD's ordered -Start ASA 81 mg daily, plan for 1 month post ablation -Continue metoprolol XL 25 mg daily, tentative plan to continue until follow up visit. -Continue all other home medications -Patient to be seen by EP fellow in AM Social History Tobacco Use Types Packs/Day Years Used Date Smoking Tobacco: Never Passive Smoke Exposure: Never Smokeless Tobacco: Never AUDIT-C Answer Date Recorded Q1: How often do you have a drink containing alc ohol? Monthly or less 06/06/2022 Q2: How many drinks containi ng alcohol do you have on a typical day when you are drinking? 1 or 2 06/06/2022 Q3: How often do you have si x or more drinks on one occasion? 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 [employer] Gender Identity Not on file Sexual Orientation Not on file Last Filed Vital Signs Vital Sign Reading Time Taken Comments Blood Pressure 140/98 07/11/2022 2:35 PM CDT Pulse 75 07/11/2022 2:35 PM CDT Temperature 36.8 C (98.2 F) 06/07/2022 4:35 AM CDT Respiratory Rate 16 06/07/2022 12:0 0 AM CDT Oxygen Saturation 97% 07/11/2022 2:35 PM CDT Inhaled Oxygen Concentration - - Weight 114.6 kg (252 lb 9.6 oz) 07/11/2022 2:35 PM CDT Height 182.9 cm (6' 0.01 ) 06/06/2022 6:55 AM CD T Body Mass Index 34.25 06/06/2022 6:55 AM CDT Plan of Treatment Not on file Medical Devices Implanted Type Area Parts Clerk Plant Maintenance Device Identifier Shelf Expiration Date Model / Serial / Lot [employer] Vascade Mvp 6-12fr Venous Closure [id number] - [id number] Implanted:Qty: 1 on 06/06/2022 by Devang Ledezma MD at [facility] Other - see comments [employer] 12/14/2023 [id number]-[id number] [id number] / / [id number] Description:Vascade closure device [employer] Vascade Mvp 6-12fr Venous Closure [id number] - [id number] Implanted:Qty: 1 on 06/06/2022 by Devang Ledezma MD at [facility] Other - see comments [employer] 01/25/2024 800-612C-[id number] [id number] / / [id number] Description:Vascade closure device [employer] Device Closure Vascade Od5 Fr Femoral Artery [id number] - [id number] Implanted:Qty: 1 on 06/06/2022 by Devang Ledezma MD at [facility] Other - see comments [employer] 02/11/2024 700-500DX- [id number] / / [id number] Description:Vascade closure device [employer] Device Closure Vascade Od5 Fr Femoral Artery [id number] - [id number] Implanted:Qty: 1 on 06/06/2022 by Devang Ledezma MD at [facility] Other - see comments [employer] 02/11/2024 700-500DX- [id number] / / [id number] Description:Vascade closure device Insurance T MEDICARE [facility] HMO/POS COMMERCIAL GENERIC [employer] EXCHANGE [id number] [place] [facility] CHOICE PLUS Advance Directives For more information, please contact: [phone] Documents on File Type Date Recorded Patient Cost Control Analyst Expl anation ADVANCE DIRECTIVE 06/08/2022 2:20 PM POWER OF MANAGER CORPORATE-MEDICAL * Full Code (Latest Code Status on File) Date Activated Date Inactivated Comments 06/06/2022 6:30 PM 06/07/2022 12:54 PM Care Teams Brake Operator Helper Relationship Specialty Start Date End Date Klever Chaudhry DO PCP - General Internal Medicine 05/30/22
--- OUTSIDE RECORDS SUMMARY | 2024-05-24 16:06 | XMS_ITS | Clinical Summary ---
Author Organization [facility] Address [address] [place] [id number] Care Team Providers Care [employer] Name Role Phone Klever Chaudhry DO Primary Care Provider [phone] Allergies No known active allergies Medications sertraline [...] (05/23/2022): Added automatically from request for surgery [id number] Assessment & Plan (06/06/2022 6:43 PM CDT): [...] be seen by EP fellow in AM Surgical History Surgery Date Site/Laterality Comments TONSILLECTOMY age 17 Medical History Medical History Date Comments Hypertension SVT (supraventricular tachycardia) Family History Medical History Relation Name Comments Hyperlipidemia Father Hypertension Father No Known Problems Mother Anesthesia problems Neg Hx Relation Name Status Comments Father Alive Mother Alive Social History Tobacco Use Types Packs/Day Years [...] on file 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 Gender Identity Not on file Sexual Orientation Not on file Obstetrics History Last Filed Vital Signs Vital Sign Reading [...] 06/06/2022 6:55 AM CDT Plan of Treatment Health Maintenance Due Date Last Done Comments Depression Screening 1992 Hepatitis C Screening 1992 Varicella Vaccines (1 of 2 - 13+ 2-dose series) 2005 Hepatitis B Screening 2010 Regular Well Visit/Exam 18-64 2010 Influenza Vaccine (#1) 2023 DTaP/Tdap/Td Vaccine (3 - Td or Tdap) 11/01/2028 11/01/2018, 10/13/1993 HPV Vaccines Aged Out No longer eligi ble based on patient's age to complete this topic Pneumococcal vaccine <65 Aged Out No longer eligible based on patient's age to complete this topic Medical Devices Implanted Type Area Head Sampler Device Identifier Shelf Expiration Date Model / Serial / Lot [employer] Vascade Mvp 6-12fr Venous Closure [id number] - [id number] Implanted:Qty: 1 on 06/06/2022 by Devang Ledezma MD at [facility] Other - see comments [employer] 12/14/2023 800-612C-1 [id number] / / [id number] Description:Vascade closure device [employer] Vascade Mvp 6-12fr Venous Closure [id number] - [id number] Implanted:Qty: 1 on 06/06/2022 by Devang Ledezma MD at [facility] Other - see comments [employer] 01/25/2024 800-612C-1 [id number] / / [id number] Description:Vascade closure device [employer] Device Closure Vascade Od5 Fr Femoral Artery [id number] - [id number] Implanted:Qty: 1 on 06/06/2022 by Devang Ledezma MD at [facility] Other - see comments [employer] 02/11/2024 700-500DX- [id number] / / [id number] Description:Vascade closure device [employer] Device Closure Vascade Od5 Fr Femoral Artery [id number] - [id number] Implanted:Qty: 1 on 06/06/2022 by Devang Ledezma MD at [facility] Other - see comments [employer] 02/11/2024 700-500DX- 05U / / [id number] Description:Vascade closure device Insurance AETNA MEDICARE AETNA COVENTRY HMO/POS COMMERCIAL GENERIC AETNA EXCHANGE [id number] [place] [facility] CHOICE PLUS Advance Directives For more information, please contact: [phone] Documents on File Type Date Recorded Patient Repairing Calibrator Expl anation ADVANCE DIRECTIVE 06/08/2022 2:20 PM 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
[2024-05-24 16:13] VITALS: BP 131/78; PULSE 84; RESP 16; TEMP 36.4; O2SAT 100
--- NOTE | 2024-05-24 16:51 | ED_ITS ---
HPI - URI/Sore Throat General Chief Complaint: Upper Respiratory Infection Stated Complaint: throat and ear pain Time Seen by Provider: 05/24/24 16:07 Source: patient Mode of arrival: ambulatory Limitations: no limitations History of Present Illness HPI Narrative: Patient is a 34-year-old male that presents with sore throat for week and half in ear pain that started the last 2-3 days. Patient has not taken anything for symptoms. Denies any fever, chills, nausea, vomiting, diarrhea, congestion. Related Data Allergies Allergy/AdvReac Type Severity Reaction Status Date / Time No Known Allergies Allergy Verified 05/24/24 16:08 Review of Systems Review of Systems: All systems reviewed & are unremarkable except as noted in HPI and below Constitutional: Constitutional: Denies body ache(s), Denies chills, Denies fev er(s), Denies headache(s) and Denies malaise Eyes: Eyes: Denies blurry vision, Denies eye discharge and Denies irritation ENT: Reports otalgia, Denies headache(s), Denies nasal congestion, Denies nasal discharge and Reports sore throat Cardiovascular: Cardiovascular: Denies chest pain, Denies edema, Denies palpitations and Denies dyspnea on exertion Respiratory: Respiratory: Denies cough and Denies dyspnea on exertion Gastrointestinal: Gastrointestinal: Denies abdominal pain, Denies diarrhea, Denies nausea and Denies vomiting Musculoskeletal: Musculoskeletal: Denies back pain, Denies arthralgias and Denies muscle weakness Integumentary/Breasts: Skin/Breast: Denies pruritus and Denies rash Neurologic: Denies headache(s) Psychiatric: Psychiatric: Reports no additional psychiatric complaints Endocrine: Endocrine: Denies palpitations PMFSH Past Medical History Medical History SVT (supraventricular tachycardia) Tinnitus Hearing loss Surgical History Surgical History Hx of tonsillectomy Family History Family History Mother Patient's mother is in good health Sibling Patient's sister is in good health Father Hypertension Hyperlipidemia Social History Social History Social History: 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 Denies all tobacco products. Rarely drinks alcohol. No history of illegal drug use. Full code. Lives with his significant other. Has children Smoking status: Never smoker Second hand tobacco smoke exposure: No Alcohol intake: never Substance use: never Substance use type: does not use Lack of Transportation: No Lack of Food: Never True Current Housing: I Have Housing Concerned About Future Housing: No Difficulty Paying Gas/Electric Bills: No Difficulty Paying for Meds: No Currently Unemployed: No Education: Trade/Vocational Certificate Difficulty w/ Childcare or Family Care: No Spiritual care concerns: No Comments At time of signature, agree with nursing past medical, surgical, social and family history. There is no relevant family history pertinent to the presenting complaint? Exam Const: General: cooperative, healthy appearing, no acute distress and well nourished Nutritional Appearance: well nourished Orientation/consciousness: patient oriented x3 Limitations: no limitations HENMT: Head: normal to inspection, normocephalic and atraumatic Ears: hearing grossly normal bilaterally, EAC's normal, no periauricular adenopathy and TM abnormal bulging on the left and erythematous on the left Face/Nose/Sinus: Normal external nose present, Normal nares present, Normal nasal mucous membranes and turbinates present, No nasal discharge present, normal facial exam and sinuses nontender Face and sinus: normal facial exam and sinuses nontender Mouth: Yes Normal oral and palatal mucosa present, Yes lip normal, Yes tongue normal and Yes moist mucous membranes Throat: posterior oropharynx normal, tonsils normal and uvula midline Eyes: General: appearance normal, both eyes and all related structures Alignment and Position: alignment normal and position normal Eyelids: eyelids normal Pupils: Equal, round and reactive pupils present EOM: EOMs intact bilaterally Neck: Neck: normal visual inspection, full ROM, no lymphadenopathy and supple Chest: Chest palpation & inspection: normal inspection of the chest Resp: Effort & Inspection: normal respiratory effort and able to speak in complete sentences Auscultation: clear to auscultation bilaterally, no crackles, no rales, no rhonchi and no wheezes Cardio: Rate: regular rate Rhythm: regular rhythm Heart sounds: S1 normal heart sound present and S2 normal heart sound present Skin: General skin exam: normal color and no rashes or lesions noted Neuro: General: patient oriented x3 and moves all extremities Cranial nerves: Yes Equal, round and reactive pupils present Cognition (Neuro): normal cognition Speech: normal speech Gait exam (Neuro): Normal gait present Extrem: General: normal to inspection and full ROM Psych: Appearance: grossly normal and well kempt Mental Status: mental status grossly normal Speech and movement: Normal speech and movement present Course Course Emergency Course: Patient is aware of diagnosis, understands and agrees to treatment plan.? Anticipatory guidance given.? Patient agrees to follow-up as directed and is aware of reasons to seek care at the emergency department.? Portions of this record may have been created with voice recognition software? Level of Care: Express Care Visit Vital Signs Vital signs: Vital Signs Temperature 36.4 C 05/24/24 16:13 Pulse Rate 84 05/24/24 16:13 Respiratory Rate 16 05/24/24 16:13 Blood Pressure 131/78 05/24/24 16:13 Pulse Oximetry 100 05/24/24 16:13 Oxygen Delivery Room Air 05/24/24 16:13 Temperature 36.4 C 05/24/24 16:13 Pulse Rate 84 05/24/24 16:13 Respiratory Rate 16 05/24/24 16:13 Blood Pressure 131/78 05/24/24 16:13 Pulse Oximetry 100 05/24/24 16:13 Oxygen Delivery Room Air 05/24/24 16:13 Reviewed MDM - URI/Sore Throat MDM Narrative Medical decision making narrative: Pt well hydrated appearing, in no respiratory distress, hemodynamically stable. Recommend supportive care. The patient is stable at time of discharge the clinical impression was discussed and the patient was given the opportunity to ask questions, which were addressed as completely as possible given the information available at present. Anticipatory guidance and return to care precautions were discussed and the importance of primary care follow-up was stressed and encouraged. The patient voiced understanding of the plan, indications to return, and the need for follow-up. Exam findings show no acute concerns or changes Patient is appropriate for outpatient treatment and follow-up. Differential diagnosis considered: Lynn virus, strep pharyngitis, allergic rhinitis, upper respiratory tract infection, sinusitis, rhinosinusitis, nasopharyngitis. viral pharyngitis, otitis media, otitis externa, otitis effusion, foreign body, cerumen impaction, viral syndrome, and influenza.? Medical Records Attestation: I reviewed the patient's medical records. Discharge Plan Discharge Clinical Impression: Otitis media Qualifiers: Otitis media type: suppurative Chronicity: acute Laterality: left Recurrence: non-recurrent Spontaneous tympanic membrane rupture: without spontaneous rupture Qualified Code(s): H66.002 - Acute suppurative otitis media without spontaneous rupture of ear drum, left ear Patient Disposition: Home, Self-Care Condition: Stable Instructions: Ear Infection (GEN) Additional Instructions: Take antibiotics as directed. Recommend antihistamine such as Benadryl at night time and Zyrtec or Andra during the day until symptoms improve Flonase nasal spray, 1 spray in each nostril once daily until symptoms improve Also, recommend symptomatic treatment includes: rest, fluids, and increase humidity of the air at home. Recommend Acetaminophen as directed on the bottle to reduce fever, pain Please schedule a follow-up visit with your personal physician for further evaluation and treatment within 3-5days. If your symptoms persist, change or worsen significantly before you can contact your personal physician then please, without delay, go to the emergency department for further evaluation. Patient Language: [place] Prescriptions: New amoxicillin 875 mg tablet 875 mg PO Q12H 7 Days Qty: 14 0RF No Action sertraline 50 mg tablet 75 mg PO DAILY Qty: 135 1RF Follow-up/Referrals: Klever Chaudhry DO [Primary Care Provider] - 3 Days Time of Disposition: 16:52
== END 2024-05-24 16:53 | disposition home or self-care (01) ==
PROVIDERS: Emergency Provider Nurse Practitioner Family; PCP Internal Medicine
DX: H66.002 Acute suppurative otitis media without spontaneous rupture of ear drum, left ear (principal)
CPT/HCPCS: 99213; G0463